=== PATIENT | female | born 1990 | race Caucasian/White ===

== ENCOUNTER 2022-12-12 21:41 | Emergency (ER) | payer BC, SELFPAY ==
[2022-12-12] VITALS (13 sets, daily range): BP systolic 129–154; BP diastolic 67–113; PULSE 63–79; RESP 9–32; TEMP 37.1; O2SAT 95–98; BMI 39.4
--- NOTE | 2022-12-12 21:55 | ED.ABDPAIN1 ---
HPI - Abdominal Pain General Chief Complaint: Abdominal Pain Stated Complaint: ABDOMINAL PAIN Time Seen by Provider: 12/12/22 21:52 Source: patient Mode of arrival: walk-in History of Present Illness HPI narrative: the patient has history of a week ago presenting to us with epigastric pain and right upper quadrant pain for the last 4-5 days associated with the nausea, and is exacerbated by eating, and she mentioned that she could not eat for the last few days due to the pain She denies any bowel movement changes any vomiting and she denies any other concerns Review of systems otherwise negative Related Data Previous Rx's Medication Instructions Recorded dicyclomine 20 mg tablet 20 mg PO TID PRN abdominal pain 12/13/22 #10 tabs famotidine 20 mg tablet (Pepcid) 20 mg PO Q12H #10 tabs 12/13/22 pantoprazole 40 mg granules 40 mg PO DAILY #30 ea 12/13/22 delayed-release for susp in packet (Protonix) Allergies Allergy/AdvReac Type Severity Reaction Status Date / Time codeine Allergy Severe Verified 12/12/22 21:44 Review of Systems ROS Status of ROS 10 or more systems reviewed and unremarkable except as noted in history and below [facility] Medical History (Updated 12/13/22 @ 00:22 by Radha Wright MD) Exam Narrative Exam Narrative: Nurses notes and vital signs reviewed and patient is not hypoxic. General: Well-appearing and in no apparent distress. Skin: Warm, dry, no pallor noted. No rash. Head: Normocephalic, atraumatic. Neck: Supple, non-tender. Eye: Pupils are equal, round and EOMI. No scleral icterus. Ears, Nose, Mouth, and Throat: TM are clear, no nasal mucosal hypertrophy. Oral mucosa is moist, no posterior oropharynx erythema, uvula is mid-line Cardiovascular: Regular Rate and Rhythm without murmur, gallop or rub. Respiratory: No accessory muscle use or respiratory distress. Lungs are clear to auscultation, no wheezing, rales or rhonchi Chest Wall: no tenderness Back: No midline thoracic or lumbar vertebral tenderness. No CVA tenderness Musculoskeletal: normal ROM, no calf or popliteal tenderness, no lower extremity edema/swelling GI: Abdomen is soft, non-distended. Normal bowel sounds. No masses appreciated. RUQ and epigastric tenderness and pt has negative Enriquez sign Neurological: A&O x4. No cranial nerve dysfunction observed. No truncal ataxia. Moves all extremities. Sensation intact. Psychiatric: Cooperative and interactive. Normal mood and affect. Constitutional Vital Signs - 24 hr 12/12/22 21:44 12/12/22 21:59 12/12/22 22:00 Temperature 98.8 F Pulse Rate 79 75 Pulse Rate [Monitor] 79 Respiratory Rate 16 18 14 Blood Pressure Blood Pressure [Left Arm] 130/96 H Pulse Oximetry 98 Oxygen Delivery Method Room Air 12/12/22 22:01 12/12/22 22:15 12/12/22 22:32 Temperature Pulse Rate 69 74 67 Pulse Rate [Monitor] Respiratory Rate 9 L 17 21 Blood Pressure 144/91 H 144/113 H Blood Pressure [Left Arm] Pulse Oximetry 96 96 96 Oxygen Delivery Method 12/12/22 22:56 12/12/22 23:00 12/12/22 23:07 Temperature Pulse Rate 73 72 63 Pulse Rate [Monitor] Respiratory Rate 15 28 H 32 H Blood Pressure Blood Pressure [Left Arm] Pulse Oximetry 96 96 95 Oxygen Delivery Method 12/12/22 23:08 Temperature Pulse Rate 71 Pulse Rate [Monitor] Respiratory Rate 25 H Blood Pressure 154/85 H Blood Pressure [Left Arm] Pulse Oximetry 95 Oxygen Delivery Method Course Vital Signs Vital signs: Vital Signs Temperature 98.8 F 12/12/22 21:44 Pulse Rate 79 12/12/22 21:44 Respiratory Rate 16 12/12/22 21:44 Blood Pressure 130/96 H 12/12/22 21:44 Pulse Oximetry 98 12/12/22 21:44 Oxygen Delivery Method Room Air 12/12/22 21:44 Temperature 98.8 F 12/12/22 21:44 Pulse Rate 71 12/12/22 23:08 Respiratory Rate 25 H 12/12/22 23:08 Blood Pressure 154/85 H 12/12/22 23:08 Pulse Oximetry 95 12/12/22 23:08 Oxygen Delivery Method Room Air 12/12/22 21:44 MDM - Abdominal Pain MDM Narrative Medical decision making narrative: EKG showing sinus rhythm with a heart rate of seventy-three, no ST elevation or depression CBC and chemistry shows no acute significant pathology of the patient's CAT scan shows the above-mentioned results with possible edema in the right upper quadrant with no clear signs of cholecystitis The patient case was discussed with Dr. Cabrera in general surgery and the plan right now is to do an ultrasound at outpatient and follow-up with him The patient was feeling much better after initial treatment she was discharged with clear liquid diet and Pepcid and Protonix for possible gastritis Bentyl for the pain and The patient is to followup with primary care physician in next 2-3 days or to return to the emergency department should any of the signs or symptoms worsen or new symptoms develop. The patient agrees with the following Diagnosis and Treatment plan and the patient will be discharged home. Lab Data Labs: Lab Results 12/12/22 Range/Units 22:21 WBC 9.9 (4.0-11.0) 10^3/uL RBC 4.56 (4.20-5.40) 10^6/uL Hgb 12.3 (12.0-16.0) g/dL Hct 37.8 (36.0-48.0) % MCV 82.9 (81.0-99.0) fL MCH 27.0 (26.7-34.0) pg MCHC 32.5 (29.9-35.2) g/dL RDW 13.3 (11.0-15.0) % Plt Count 433 (150-450) 10^3/uL MPV 8.7 L (9.5-13.5) fL Neut % (Auto) 69.3 (43.0-75.0) % Lymph % (Auto) 21.7 (20.5-60.0) % Irwin % (Auto) 5.8 (1.7-12.0) % Eos % (Auto) 2.6 (0.9-7.0) % Baso % (Auto) 0.3 (0.2-2.0) % Neut # (Auto) 6.9 H (1.4-6.5) 10^3/uL Lymph # (Auto) 2.2 (1.2-3.8) 10^3/uL Irwin # (Auto) 0.6 (0.3-0.8) 10^3/uL Eos # (Auto) 0.3 (0.0-0.7) 10^3/uL Baso # (Auto) 0.0 (0.0-0.1) 10^3/uL Abs Immat Gran (auto) 0.03 (0.00-0.03) 10^3/uL Imm/Tot Granulo (auto) 0.3 (0.0-0.5) % Sodium 137 (136-145) mmol/L Potassium 3.6 (3.5-5.1) mmol/L Chloride 103 (98-107) mmol/L Carbon Dioxide 24.4 (21.0-32.0) mmol/L Anion Gap 13.2 BUN 8.0 (7.0-18.0) mg/dL Creatinine 0.66 (0.55-1.02) mg/dL Est GFR ( Amer) >60 (>=60) Est GFR (Non-Af Amer) >60 (>=60) BUN/Creatinine Ratio 12.1 Glucose 149 H (74-106) mg/dL Calcium 8.7 (8.5-10.1) mg/dL Total Bilirubin 0.6 (0.2-1.0) mg/dL AST 20 (15-37) U/L ALT 26 (14-59) U/L Alkaline Phosphatase 109 (46-116) U/L Troponin I High Sens 4.5 (4.0-51.3) pg/mL Total Protein 7.6 (6.4-8.2) g/dL Albumin 3.1 L (3.4-5.0) g/dL Globulin 4.5 g/dL Albumin/Globulin Ratio 0.7 Lipase 85.0 (73.0-393.0) U/L Discharge Plan Discharge Chief Complaint: Abdominal Pain Clinical Impression: Gastritis, Abdominal pain Patient Disposition: Home, Self-Care Time of Disposition Decision: 00:19 Mode of Transportation: Private Vehicle Prescriptions / Home Meds: New famotidine [Pepcid] 20 mg tablet 20 mg PO Q12H Qty: 10 0RF pantoprazole [Protonix] [address] for susp in packet 40 mg PO DAILY Qty: 30 0RF dicyclomine 20 mg tablet 20 mg PO TID PRN (Reason: abdominal pain) Qty: 10 0RF Outpatient Diagnostics: US abdomen limited (Routine) Timeframe: 1 Day Facility: [facility] - Location: Patient Own Location Ordered By: Radha Wright Instructions: Gastritis (ED), Full Liquid Diet (DC) Additional Instructions: please schedule the US abd as out pt and f/u with Dr Cabrera for results Dr. Cabrera General Surgery [phone] Stand Alone Forms: Portal Instructions Referrals: Mars Jovel MD [Primary Care Provider] - 1 week Follow Up Appointments: Dr Cabrera ( general surgery )
--- NOTE | 2022-12-12 21:59 | ECG_ITS ---
The [facility] Test Date: 2022-12-12 Pat Name: RUBÉN LU Department: Room: - Gender: Female [employer] Worker: : 1990 Requested By: DARYN MCBRIDE Order Number: [id number] Reading MD: DARYN MCBRIDE Measurements Intervals [place] Rate: 73 P: 63 HI: 128 QRS: 75 QRSD: 76 T: 61 QT: 384 QTc: 409 Interpretive Statements 1100 Sinus rhythm 9110 normal ECG No previous ECG available for comparison Electronically Signed On 12-13-2022 6:24:18 EDT by DARYN MCBRIDE
--- NOTE | 2022-12-12 21:59 | CT_ITS ---
[address] [address] Patient Name: RUBNÉ LU MRN: [facility]:[id number] date: 1990 Sex: F Assigned Patient Location: ER Current Patient Location: ER Accession/Order Number: [id number] Exam Date: 12/12/2022 22:45 Report Date: 12/12/2022 23:39 At the request of: VERONICA DASH Procedure: CT abdomen pelvis wo con EXAM: CT abdomen pelvis wo con HISTORY: RUQ pain COMPARISON: CT abdomen pelvis 10/24/2017 TECHNIQUE: Multiple axial views CT abdomen pelvis with IV contrast. Coronal sagittal reformats. FINDINGS: Visualized lung bases and cardiac apex are unremarkable. Pancreas, spleen, right adrenal gland, urinary bladder, and appendix are unremarkable. Hepatomegaly measuring 22.2 cm craniocaudal length. Trace scattered edema of the right upper quadrant abdomen, gallbladder fossa, and right mid to lower peritoneum. Left adrenal adenomatous hyperplasia. Multiple 2-5 mm nonobstructing bilateral renal stones (3 calculi on the right and 4 calculi on the left). No radiopaque ureteral stone or hydronephrosis. 3.1 cm density within the lower uterine endometrial canal with trace foci of air. Apparent mild distal pyloric/proximal duodenal wall thickening (image 44 series 3). No evidence for small bowel obstruction, large ascites, or free air. Mild colonic diverticula. No acute bony abnormality. IMPRESSION: Trace scattered edema of the right upper quadrant abdomen, gallbladder fossa, and right mid to lower peritoneum. However, no hydropic gallbladder, radiopaque gallstones, peripancreatic inflammatory stranding, or pericolonic of fluid or stranding. Correlate clinically for etiology. Apparent mild distal pyloric/proximal duodenal wall thickening reflecting focal peristalsis versus sequela of gastritis/peptic disease. Correlate clinically. Hepatomegaly. 3.1 cm density within the lower uterine endometrial canal with trace foci of air reflecting endometrial blood material/clot, debris, or other retained material. Correlate clinically for any endometrium inflammation/infection. 2-5 mm bilateral nonobstructing renal stones. Electronically authenticated by: MAYRA OZUNA Date: 12/12/2022 23:39
[2022-12-12 22:29] LABS: Basophils Percent Auto 0.3 % (0.2-2.0); Eosinophils Absolute Auto 0.3 10^3/uL (0.0-0.7); Eosinophils Percent Auto 2.6 % (0.9-7.0); Hematocrit 37.8 % (36.0-48.0); Hemoglobin 12.3 g/dL (12.0-16.0); Immature Granulocytes Abs Auto 0.03 10^3/uL (0.00-0.03); Immature Granulocytes Pct Auto 0.3 % (0.0-0.5); Lymphocytes Absolute Auto 2.2 10^3/uL (1.2-3.8); Lymphocytes Percent Auto 21.7 % (20.5-60.0); Mean Corpuscular HGB Conc 32.5 g/dL (29.9-35.2); Mean Corpuscular Volume 82.9 fL (81.0-99.0); Mean Platelet Volume 8.7 fL (9.5-13.5); Monocytes Absolute Auto 0.6 10^3/uL (0.3-0.8); Monocytes Percent Auto 5.8 % (1.7-12.0); Neutrophils Absolute Auto 6.9 10^3/uL (1.4-6.5); Neutrophils Percent Auto 69.3 % (43.0-75.0); Platelet Count 433 10^3/uL (150-450); Red Blood Count 4.56 10^6/uL (4.20-5.40); Red Cell Distribution Width 13.3 % (11.0-15.0); White Blood Count 9.9 10^3/uL (4.0-11.0)
[2022-12-12 22:49] LABS: Alanine Aminotransferase 26 U/L (14-59); Albumin Globulin Ratio 0.7; Albumin Level 3.1 g/dL (3.4-5.0); Alkaline Phosphatase 109 U/L (46-116); Anion Gap 13.2; Aspartate Amino Transferase 20 U/L (15-37); BUN Creatinine Ratio 12.1; Bilirubin Total 0.6 mg/dL (0.2-1.0); Calcium 8.7 mg/dL (8.5-10.1); Carbon Dioxide 24.4 mmol/L (21.0-32.0); Chloride 103 mmol/L (98-107); Estimated GFR (African America >60 (>=60); Estimated GFR (Non-African Ame >60 (>=60); Globulin 4.5 g/dL; Glucose 149 mg/dL (74-106); Potassium 3.6 mmol/L (3.5-5.1); Sodium 137 mmol/L (136-145); Total Protein 7.6 g/dL (6.4-8.2); Troponin I High Sensitivity 4.5 pg/mL (4.0-51.3)
[2022-12-12] MEDS: FAMOTIDINE/PF 20 MG/2 ML VIAL IV (23:04)
[2022-12-12] MEDS: 0.9 % SODIUM CHLORIDE 1,000 ML 1000 ML IV (23:04)
[2022-12-12] MEDS: KETOROLAC TROMETHAMINE 30 MG/ML VIAL 15 MG IVP (23:04)
[2022-12-13] VITALS (8 sets, daily range): BP systolic 126–171; BP diastolic 55–110; PULSE 56–67; RESP 8–26; O2SAT 95–98
[2022-12-13] MEDS: MORPHINE SULFATE 2 MG/ML SYRINGE IV (01:05)
== END 2022-12-13 01:52 | disposition home or self-care (01) ==
PROVIDERS: Emergency Provider Emergency Medicine; PCP Family Medicine
DX: O90.89 Other complications of the puerperium, not elsewhere classified (principal); R10.9 Unspecified abdominal pain; O99.63 Diseases of the digestive system complicating the puerperium; K29.70 Gastritis, unspecified, without bleeding
CPT/HCPCS: 36415; 74176; 80053; 83690; 84484; 85025; 93005; 96374; 96375; 99285

== ENCOUNTER 2022-12-13 11:18 | Outpatient (OUT) | payer BC, SELFPAY ==
--- NOTE | 2022-12-13 11:25 | US_ITS ---
The [address] [address] Patient Name: RUBÉN LU MRN: [id number] date: 1990 Sex: F Assigned Patient Location: US Current Patient Location: US Accession/Order Number: [id number] Exam Date: 12/13/2022 11:25 Report Date: 12/13/2022 15:41 At the request of: VERONICA DASH Procedure: US right upper quadrant EXAMINATION: US right upper quadrant HISTORY: Right Upper Quadrant Pain COMPARISON: No relevant comparison available. TECHNIQUE: Transabdominal evaluation of the right upper quadrant. FINDINGS: LIVER: Mild fatty infiltration. Color Doppler demonstrates patent hepatic veins. PORTAL VEIN: Duplex Doppler demonstrates normal hepatopetal flow pattern with flow velocity averaging 43 cm/s. GALLBLADDER: 3 mm polyp versus adherent stone adjacent the posterior wall. No wall thickening or free fluid. Negative sonographic Enriquez's sign. BILIARY: No abnormal dilation or stones. Common bile duct diameter is within normal limits. PANCREASE: No visible mass, abnormal atrophy, or duct dilation. KIDNEY: Contains at least 2 nonobstructing stones, largest is 7 mm. Size: IMPRESSION: 1. Gallbladder contains a 3 mm polyp versus stone adherent to the posterior wall. No findings to suggest acute cholecystitis. No abnormal duct dilation. 2. Nonobstructing right nephrolithiasis. Electronically authenticated by: DENISE BLEDSOE Date: 12/13/2022 15:41
== END 2022-12-13 11:19 ==
LOC: US 11:19
PROVIDERS: PCP Family Medicine; Visit Provider Surgery
DX: R10.11 Right upper quadrant pain (principal)
CPT/HCPCS: 76705

== ENCOUNTER 2023-10-05 14:26 | Outpatient (OUT) | payer BC, SELFPAY ==
--- NOTE | 2023-10-05 14:34 | XR_ITS ---
The [address] [address] Patient Name: RUBÉN LU MRN: [id number] date: 1990 Sex: F Assigned Patient Location: [facility] Current Patient Location: [facility] Accession/Order Number: [id number] Exam Date: 10/05/2023 14:36 Report Date: 10/05/2023 14:51 At the request of: DARYN MCBRIDE Procedure: XR knee LT 3V EXAM: XR knee LT 3V HISTORY: knee internal derangement M23.90 COMPARISON: None. TECHNIQUE: 3 views of left knee were obtained. FINDINGS: There is no evidence of a fracture or dislocation. There is mild narrowing of the medial compartment. No osteochondral injury is identified. There is no evidence of a joint effusion. No abnormal soft tissue calcification is identified. XR/XR knee LT 3V IMPRESSION: No acute fracture or dislocation. Mild narrowing of the medial compartment is noted and there is no evidence of a joint effusion. Electronically authenticated by: MICHOACANO SANTACRUZ Date: 10/05/2023 14:51
== END 2023-10-05 14:27 | disposition home or self-care (01) ==
LOC: RAD 14:27
PROVIDERS: PCP Family Medicine; Visit Provider Family Medicine
DX: M23.90 Unspecified internal derangement of unspecified knee (principal)
CPT/HCPCS: 73562